=== PATIENT | male | born 1990 | race Caucasian/White ===

== ENCOUNTER 2023-09-19 18:56 | Emergency (ER) | payer BC, SELFPAY ==
[2023-09-19 18:58] VITALS: BP 140/103; BMI 36.3
[2023-09-19 19:27] LABS: COVID-19 Antigen Negative (Negative)
[2023-09-19 21:00] VITALS: BP 145/103
--- NOTE | 2023-09-19 21:30 | ED.GENMED ---
History of Present Illness
General
Chief Complaint: Fever
Time Seen by Provider: 09/19/23 20:20
Travel History
Have you had any contact with someone who has COVID-19?: No
Do you have any symptoms of coronavirus? Fever > 100 degrees, chills, cough, shortness of breath, sore throat, loss of taste or smell, muscle aches, or headache?: No
History of Present Illness
History of Present Illness:
Patient is an otherwise healthy 32-year-old male who presents to the emergency department with fever. States he has been in the [facility] for the past 3 days as his had a baby. Today he developed fever and chills. He endorses mild nasal
congestion and postnasal drip. Denies shortness of breath or chest pain. Denies abdominal pain. Denies urinary symptoms. Denies rash.
Past History
Past History
ED Past Medical History: HTN, Hypercholesterolemia and Other (Senior's IgA nephropathy, gout, kidney transplant, pancreatitis)
ED Past Surgical History: Orthopedic and Other (Kidney transplant January 2019)
Social History
Tobacco: Former smoker
Alcohol: Occasional
Drug: None
Personal:
Living: with family
Employment: Employed
Family History
Family History: Hypertension
Phy Exam
Physical Exam
Physical Exam:
GENERAL APPEARANCE: NAD, well developed/ well nourished
EYES lids/conjunctiva normal
EARS/NOSE/THROAT Mucous membranes moist, uvula midline without oral pharyngeal erythema, exudate or swelling, normal TMs bilaterally, mild nasal congestion noted
HEAD/NECK normocephalic atraumatic, neck is supple.
RESPIRATORY respiratory effort normal, speaks in full sentences, no accessory muscle use. Lungs clear to auscultation without rhonchi, wheezes, rales
CARDIAC Regular rate and rhythm, no edema.
ABDOMINAL Soft, ND/NT. No pulsatile masses on exam, rebound tenderness, Villarreal sign or pain over Mcburney's point.
MUSCLES/EXTREMITIES No abnormal range of motion, no swelling.
SKIN Warm, pink and dry. No rashes
NEUROLOGICAL Speech is clear and appropriate. Normal level of consciousness. 5/5 strength in all extremities.
PSYCH Normal mood and affect. Judgement/competence is appropriate
Course
Orders/Labs/Results
Orders:
Orders
09/19/23 19:02
COVID-19 Antigen Urgent
Source: Nasal Swab
Influenza A+B Rapid Molecular Urgent
CONTRERAS Source: Nasal Swab
Specimen Description:
Vital Signs
Initial and Last Documented VS:
Initial Vital Signs
Temp Pulse Resp BP
103.2 F H 118 16 140/103
09/19/23 18:58 09/19/23 18:58 09/19/23 18:58 09/19/23 18:58
Last Documented Vital Signs
Temp Pulse Resp BP Pulse Ox
100.3 F 96 22 145/103 95
09/19/23 20:10 09/19/23 21:15 09/19/23 21:15 09/19/23 21:00 09/19/23 21:15
*Critical Care Note
Total Time (30-74mins, 75-104mins- exclusive of procedures): Not Applicable
ED Attending Note
ED Attending Note
ED Attending Note:
Patient very well-appearing. Do not suspect occult bacteremia or bacterial infection given lack of risk factors and well appearance. Likely viral syndrome given recent exposure in the hospital. Return precautions given.
-
Portions of this chart may have been created with voice recognition software.� Occasional wrong word or��sound alike� substitutions may have occurred due to the inherent limitations of voice recognition software.
Discharge Plan
Departure
Patient Disposition: Home (Routine Discharge)
Date of Disposition: 09/19/23
Time of Disposition: 21:32
Patient with high blood pressure during this ER visit?: No
Covid-19: Negative COVID-19
Discharge Problem:
Fever, URI (upper respiratory infection)
Instructions: Fever, Adult (DC), Viral Syndrome (DC)
Prescriptions:
No Action
rosuvastatin 10 MG tablet
10 mg PO QPM
prednisone 5 MG tablet
5 mg PO DAILY
Hold Instructions: Resume on 05/24/22. resume after higher dose prednisone taper
tacrolimus 1 MG capsule
2 mg PO DAILY
carvedilol [Coreg] 25 MG tablet
25 mg PO BID
sodium bicarbonate 650 MG tablet
650 mg PO BID
lisinopril [Zestril] 40 MG tablet
40 mg PO DAILY
cholecalciferol (vitamin D3) 1,000 UNITS tablet
1,000 units PO DAILY
Lokelma 10 GM powder in packet
10 gm PO DAILY
mycophenolate mofetil 250 MG capsule
500 mg PO BID
ondansetron 4 MG tablet,disintegrating
4 mg PO TIDPRN PRN (Reason: nausea/vomiting) Qty: 12 0RF
acetaminophen [Tylenol] 325 mg Tablet
650 mg PO Q6HPRN PRN (Reason: mild pain)
simethicone [Gas-X Extra Strength] 125 mg Capsule
125 mg PO BIDPRN PRN (Reason: gas)
tacrolimus 0.5 mg capsule
1 mg PO HS
Referrals:
Oral Pineda MD [Family Provider] -
Interventions
Interventions:
*Risk Screen - Suicide Last Done: 09/19/23 18:58
*General Assessment Last Done: 09/19/23 20:08
*Neglect/Abuse Screening Last Done: 09/19/23 18:58
ED- Fall Risk Assessment Last Done: 09/19/23 20:07
*ED COVID-19 Vaccine History Last Done: 09/19/23 20:04
*Nursing Disposition Last Done: 09/19/23 21:46
ED-Skin Assessment Last Done: 09/19/23 20:07
ED- Neurological Assessment Last Done: 09/19/23 20:07
Discharge Date and Time
Discharge Date/Time: 09/19/23 21:49
Print Language: GEORGIAN
== END 2023-09-19 21:49 | disposition home or self-care (01) ==
LOC: EMR 18:56
PROVIDERS: Emergency Medicine; EMERGENCY PHYSICIAN Emergency Medicine; FAMILY PHYSICIAN Family Medicine
DX: J06.9 Acute upper respiratory infection, unspecified (principal); R50.9 Fever, unspecified; Z11.52 Encounter for screening for COVID-19; I10 Essential (primary) hypertension; E78.00 Pure hypercholesterolemia, unspecified; M10.9 Gout, unspecified; N02.B1 Recurrent and persistent immunoglobulin A nephropathy with glomerular lesion; Z94.0 Kidney transplant status; Z87.891 Personal history of nicotine dependence; Z88.1 Allergy status to other antibiotic agents; Z88.0 Allergy status to penicillin; Z91.018 Allergy to other foods
CPT/HCPCS: 99283; 87502; 87811